=== PATIENT | female | born 1985 | race Caucasian/White ===

== ENCOUNTER 2016-12-19 19:20 | Emergency (ER) | payer OTHER | END 2016-12-19 21:07 | disposition home or self-care (01) | LOC: ER 19:20 | DX: B34.9 Viral infection, unspecified (principal); F41.9 Anxiety disorder, unspecified; F32.9 Major depressive disorder, single episode, unspecified; F17.210 Nicotine dependence, cigarettes, uncomplicated; Z79.899 Other long term (current) drug therapy; Z88.5 Allergy status to narcotic agent; Z90.711 Acquired absence of uterus with remaining cervical stump | CPT/HCPCS: 87502 ==

== ENCOUNTER 2016-12-28 20:24 | Emergency (ER) | payer OTHER | END 2016-12-29 01:53 | disposition home or self-care (01) | LOC: ER 20:24 | DX: A59.01 Trichomonal vulvovaginitis (principal); A59.03 Trichomonal cystitis and urethritis; F17.210 Nicotine dependence, cigarettes, uncomplicated; F41.9 Anxiety disorder, unspecified; F32.9 Major depressive disorder, single episode, unspecified; F43.10 Post-traumatic stress disorder, unspecified; Z88.5 Allergy status to narcotic agent; Z79.899 Other long term (current) drug therapy; Z90.711 Acquired absence of uterus with remaining cervical stump ==